=== PATIENT | female | born 1995 | race Two or more races ===

== ENCOUNTER → 2025-03-11 | Outpatient (BNVA) | payer MEDICAID, SELFPAY | END | disposition home or self-care (01) | PROVIDERS: PCP Nurse Practitioner Family; Referring Provider Nurse Practitioner Family; Visit Provider Nurse Practitioner Family | DX: Z00.01 Encounter for general adult medical examination with abnormal findings (principal); Z13.1 Encounter for screening for diabetes mellitus; E78.5 Hyperlipidemia, unspecified; E55.9 Vitamin D deficiency, unspecified; E66.3 Overweight; M54.89 Other dorsalgia; Z71.85 Encounter for immunization safety counseling | CPT/HCPCS: 99214 ==

== ENCOUNTER → 2025-03-15 | Outpatient (BNVA) | payer MEDICAID, SELFPAY | END | disposition home or self-care (01) | PROVIDERS: PCP Nurse Practitioner Family; Referring Provider Nurse Practitioner Family; Visit Provider Nurse Practitioner Family | DX: Z12.4 Encounter for screening for malignant neoplasm of cervix (principal); Z11.3 Encounter for screening for infections with a predominantly sexual mode of transmission; N76.0 Acute vaginitis | CPT/HCPCS: 99215; Q0091 ==

== ENCOUNTER → 2025-03-18 | Outpatient (BNVA) | payer MEDICAID, SELFPAY | END | disposition home or self-care (01) | PROVIDERS: PCP Nurse Practitioner Family; Referring Provider Nurse Practitioner Family; Visit Provider Nurse Practitioner Family | DX: Z32.02 Encounter for pregnancy test, result negative (principal); Z71.1 Person with feared health complaint in whom no diagnosis is made | CPT/HCPCS: 99215 ==

== ENCOUNTER → 2025-03-22 | Outpatient (BNVA) | payer MEDICAID, SELFPAY | END | disposition home or self-care (01) | PROVIDERS: PCP Nurse Practitioner Family; Referring Provider Nurse Practitioner Family; Visit Provider Nurse Practitioner Family | DX: Z71.2 Person consulting for explanation of examination or test findings (principal); R87.810 Cervical high risk human papillomavirus (HPV) DNA test positive | CPT/HCPCS: 99212; G0463 ==

== ENCOUNTER → 2025-03-31 | Outpatient (BNVA) | payer MEDICAID, SELFPAY | END | disposition home or self-care (01) | PROVIDERS: PCP Nurse Practitioner Family; Referring Provider Nurse Practitioner Family; Visit Provider Nurse Practitioner Family | DX: Z71.2 Person consulting for explanation of examination or test findings (principal); E78.5 Hyperlipidemia, unspecified; R73.03 Prediabetes; E55.9 Vitamin D deficiency, unspecified | CPT/HCPCS: 99212; G0463 ==

== ENCOUNTER 2025-05-18 09:33 | Outpatient (AMB) | payer MEDICAID, SELFPAY ==
--- NOTE | 2025-05-18 09:32 | AMB.GYNCLNOT ---
Vital Signs 05/18/25 09:54 Height 1.54 m Height Method Measured Weight 65.998 kg Weight Measurement Method Standing Scale BMI 27.8 BP 100/63 Blood Pressure Source Automatic Cuff Blood Pressure Location Right Upper Arm Position Sitting Respiration 17 Pulse 55 L Pulse Source Monitor Temp 98.3 F Temp Source Temporal Artery Scan Pulse Oximetry (%) 97 Oxygen Delivery Method Room Air Allergies/Home Meds Allergies & Medications Allergies No Known Allergies Allergy (Verified 05/18/25 09:55) Medication Reconciliation ergocalciferol (vitamin D2) 1,250 mcg (50,000 unit) capsule 50,000 unit PO QWEEK 12 weeks #12 caps 03/31/25 [Rx Confirmed 05/18/25] Intake Visit Data Collection New Patient or Established: Established Patient (seen at [facility] within 3 years) Reason for Visit:: REF POSITIVE HPV Consent obtained for Telemed Visit: No Seen by Clinical Staff ONLY (RN/MA): No Comprehensive Advisor Required: Yes Comprehensive Advisor's name/title: SOTERO Do You Feel Safe at Home: Yes Authorities Contacted: N/A PCP or OBGYN visit in last 3 months: Yes Date of Last PCP or OBGYN visit: 03/18/25 Hx Now: No Are you currently on any form of Control: No Last menstrual period: 04/09/25 Pain Present Currently: No Pain Scale Used: Rankin-Moran/Numerical Pain scale:: 0 Smoking Status Smoking Status: Never smoker 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 Menstrual regularity: irregular Flow: normal Monthly: No How many days does period last: 5 Age at menarche: 11 Menopausal: No Currently sexually active: Yes 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 1. Little interest or pleasure in doing things: not at all PHQ-9 3. Trouble falling or staying asleep, or sleeping too much: Not at all 4. Feeling tired or having little energy: Not at all 5. Poor appetite or overeating: Not at all 6. Feeling bad about yourself - or that you are a failure or have let yourself or your family down: Not at all 7. Trouble concentrating on things, such as reading the newspaper or watching television: Not at all 8. Moving or speaking so slowly that other people could have noticed? - Or the opposite - being so fidgety or restless that you have been moving around a lot more than usual: not at all 9. Thoughts that you would be better off or of hurting yourself in some way: Not at all If you checked off any problems, how difficult have these problems made it for you to do your work, take care of things at home, or get along with other people?: not difficult at all Source: Developed by Drs. Sagar Mcmahan, Janet Handy, Arslan Avila and colleagues, with an educational bernard from [employer]. Social History Living Situation History Lives With: Significant Other Housing: House Tobacco History Smoking Status: Never smoker Second Hand Smoke Exposure: No Alcohol History Alcohol Intake: Never Substance Use History Substance Use: NONE Domestic Abuse History Do You Feel Safe at Home: Yes History of Present Illness HPI Narrative Isis Randall is a 30-year-old female presenting for review of abnormal Pap smear results. She was referred from the [facility] for care review. The patient had a Pap smear on March 11, 2025, which was negative for intraepithelial lesion or malignancy (NILM), but positive for high-risk HPV types other than 16 and 18. A previous Pap smear in 2023 had similar results. The patient's gonorrhea and chlamydia tests were negative. She is 1, para 1, with a history of one in January 2020. Her last menstrual period was on April 09, 2025, and she is currently not using any contraceptive method. Isis does not report any specific symptoms related to her abnormal Pap smear results. She understands that a colposcopy has been recommended based on the ASCCP guidelines due to her positive high-risk HPV results. Obstetric History: - GPAL: A0 L1 - history: - Delivered via in January 2020 Medical History: - HPV (high-risk types other than 16 and 18) positive on Pap smear Surgical History: - section in January 2020 ROS: Negative except as stated above, limited to STRATEGIC PARTNER DEVELOPMENT MANAGER and pertinent complaints. Diagnostic Test Results and Labs: - Pap smear (03/11/2024): Negative for intraepithelial lesion or malignancy (NILM) - HPV test (03/11/2024): Positive for other high-risk types (not 16 or 18) - Gonorrhea test (03/11/2024): Negative - Chlamydia test (03/11/2024): Negative - Pap smear (03/15/2025): Negative for intraepithelial lesion or malignancy (NILM) - HPV test (03/15/2025): Positive for other high-risk types (not 16 or 18) Exam General General Appearance: alert, in no apparent distress and healthy appearing Head Head exam: atraumatic Neck Neck exam: Present normal inspection and trachea midline Chest Chest inspection: Present normal inspection and symmetric chest wall rise External exam: Present normal external exam; Absent tenderness Neuro Neurological exam: Present oriented X3 Psych Psychiatric exam: Present normal affect and normal mood Office Procedures OB Clinic LOC & Office Proc's Nursing/Assessment Patient Status: Established Patient OB Clinic Nursing Assessment: Medication Reconciliation, Update PMH in EMR and Vital Signs OB Clinic Coordination of Care: Complex Care and Chronic Disease 1-5, Consent,records obtained, informed consent, Education Simp Pt/Fam, 4+ Authorizations needed and Staff clarify orders Established Patient Charge Established Patient Point Assignment: 110 Established Patient Point Charge: EP Level 3 (80-115) Assessment & Plan Diagnosis / Problem List (1) Prediabetes: Status: Chronic (2) HPV test positive: Status: Acute Plan Abnormal Pap smear with positive high-risk HPV Plan: - Schedule colposcopy with cervical biopsy in 2-3 weeks, after patient's next menstrual period - Instruct patient to avoid sexual intercourse for 2-3 days post-procedure - Review biopsy results when available to determine if further intervention is needed - Provide patient education on colposcopy procedure and post-procedure care
[2025-05-18 09:54] VITALS: BP 100/63; PULSE 55; RESP 17; TEMP 36.8; O2SAT 97; BMI 27.8
== END 2025-05-18 10:06 | disposition home or self-care (01) ==
LOC: HODSOBC 09:33
PROVIDERS: PCP Nurse Practitioner Family; Referring Provider Nurse Practitioner Family; Supervising Provider Obstetrics & Gynecology; Visit Provider Obstetrics & Gynecology
DX: R87.810 Cervical high risk human papillomavirus (HPV) DNA test positive (principal); R73.03 Prediabetes
CPT/HCPCS: 99213; G0463

== ENCOUNTER → 2025-06-07 | Outpatient (BNVA) | payer MEDICAID, SELFPAY | END | disposition home or self-care (01) | PROVIDERS: PCP Nurse Practitioner Family; Referring Provider Nurse Practitioner Family; Visit Provider Nurse Practitioner Family | DX: E55.9 Vitamin D deficiency, unspecified (principal) | CPT/HCPCS: 99212; G0463 ==

== ENCOUNTER 2025-06-15 09:59 | Outpatient (AMB) | payer MEDICAID, SELFPAY ==
[2025-06-15 10:41] VITALS: BP 105/70; PULSE 64; RESP 18; TEMP 36.2; O2SAT 98; BMI 27.1
--- NOTE | 2025-06-15 10:41 | GYNCLNT_ITS ---
Vital Signs 06/15/25 10:41 Height 1.54 m Height Method Stated Weight 64.467 kg BMI 27.1 BP 105/70 Blood Pressure Source Automatic Cuff Blood Pressure Location Left Upper Arm Position Sitting Respiration 18 Pulse 64 Pulse Source Monitor Temp 97.2 F Temp Source Oral Pulse Oximetry (%) 98 Oxygen Delivery Method Room Air Allergies/Home Meds Allergies & Medications Allergies No Known Allergies Allergy (Verified 07/08/25 13:19) Medication Reconciliation cholecalciferol (vitamin D3) 1,250 mcg (50,000 unit) capsule 1,250 mcg PO QWEEK 12 weeks #12 caps 07/08/25 [Rx] Intake Visit Data Collection New Patient or Established: Established Patient (seen at [facility] within 3 years) Reason for Visit:: COLPO CONSENT PROVIDED Seen by Clinical Staff ONLY (RN/MA): No Emergency Room Registered Nurse Required: Yes Emergency Room Registered Nurse's name/title: MARYELLEN ABERNATHY MA Do You Feel Safe at Home: Yes Authorities Contacted: N/A PCP or OBGYN visit in last 3 months: Yes Date of Last PCP or OBGYN visit: 05/18/25 Hx Now: No Are you currently on any form of Control: No Last menstrual period: 06/01/25 Pain Present Currently: No Pain Scale Used: Rankin-Moran/Numerical Pain scale:: 0 Smoking Status Smoking Status: Never smoker 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 Menstrual regularity: regular Flow: normal Monthly: Yes How many days does period last: 5 Age at menarche: 11 Menopausal: No Currently sexually active: Yes 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 1. Little interest or pleasure in doing things: not at all 2. Feeling down, depressed, or hopeless: not at all Total score: 0 PHQ-9 3. Trouble falling or staying asleep, or sleeping too much: Not at all 4. Feeling tired or having little energy: Not at all 5. Poor appetite or overeating: Not at all 6. Feeling bad about yourself - or that you are a failure or have let yourself or your family down: Not at all 7. Trouble concentrating on things, such as reading the newspaper or watching television: Not at all 8. Moving or speaking so slowly that other people could have noticed? - Or the opposite - being so fidgety or restless that you have been moving around a lot more than usual: not at all 9. Thoughts that you would be better off or of hurting yourself in some way: Not at all Total score: 0 If you checked off any problems, how difficult have these problems made it for you to do your work, take care of things at home, or get along with other people?: not difficult at all Source: Developed by Drs. Sagar Mcmahan, Janet Handy, Arslan Avila and colleagues, with an educational bernard from [employer]. Depression screen completed yes Social History Living Situation History Lives With: Significant Other Housing: House Tobacco History Smoking Status: Never smoker Second Hand Smoke Exposure: No Alcohol History Alcohol Intake: Never Substance Use History Substance Use: NONE Domestic Abuse History Do You Feel Safe at Home: Yes History of Present Illness HPI Narrative The patient had a Pap smear on March 11, 2025, which was negative for intraepithelial lesion or malignancy (NILM), but positive for high-risk HPV types other than 16 and 18. A previous Pap smear in 2023 had similar results. The patient's gonorrhea and chlamydia tests were negative. She is 1, para 1, with a history of one in January 2020. Her last menstrual period was on April 09, 2025, and she is currently not using any contraceptive method. Isis does not report any specific symptoms related to her abnormal Pap smear results. She understands that a colposcopy has been recommended based on the ASCCP guidelines due to her positive high-risk HPV results. Exam General General Appearance: alert, in no apparent distress and healthy appearing Head Head exam: atraumatic Neck Neck exam: Present normal inspection and trachea midline Chest Chest inspection: Present normal inspection and symmetric chest wall rise External exam: Present normal external exam; Absent tenderness Neuro Neurological exam: Present oriented X3 Psych Psychiatric exam: Present normal affect and normal mood Office Procedures OB Clinic LOC & Office Proc's Nursing/Assessment Patient Status: Established Patient OB Clinic Nursing Assessment: Medication Reconciliation, Update PMH in EMR and Vital Signs OB Clinic Coordination of Care: Education Complex Pt/Fam, Consent,records obtained, informed consent, Education Simp Pt/Fam, Lab and Imaging orders and Staff clarify orders Special Needs: Language special needs Miscellaneous Interventions: Path collection/handling and Pelvic Comp w/OB cult Established Patient Charge Established Patient Point Assignment: 125 Established Patient Point Charge: EP Level 4 (120-155) In Clinic Bedside tests Bedside HCG: Yes In Clinic Procedures Biopsy/Exc/Destruction of any site: Yes Colposcopy: YES PERFORMED COLPOSCOPY OF CERVIX/VAG W/BX & ENDOCERVICAL CURETTAGE: Yes 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: Colposcopy HISTORY HPV vaccine: none Allergy to Latex: No Allergic to Iodine or Betadine: No Contraception: none STI screening up to date: Yes New partner(s) since last screening: No Tobacco use: No PRE-PROCEDURE Consent signed: Yes Discussion w/ patient: Nature & meaning of cervical cytology screening, HPV infection in relation to cervical cytology findings, Colposcopy procedure explained and Side effects, risks & complications discussed PROCEDURE Time out performed: Yes Colposcopy of:: cervix Speculum used:: small The vulva, vagina & perianal regions were examined w/ findings of:: no gross abnormalities A speculum was placed, and the cervix and vagina were treated with:: Diluted acetic acid Cervix:: Fully visualized Squamocolumnar junction:: Fully visualized Acetowhite or non-Lugol's staining: not present Lesion(s): not present Colposcopic Impression: normal/benign findings Patient tolerated procedure:: well PLAN HPV Plan:: n/a Pt. advised of relationship between smoking and cervical dysplasia/cancer; smoking cessation discussed: Yes Colposcopy results to be communicated per:: at followup Assessment & Plan Diagnosis / Problem List (1) HPV test positive: Status: Acute Plan Colposcopy biopsy performed Return with results
== END 2025-06-15 11:00 | disposition home or self-care (01) ==
LOC: HODSOBC 09:59
PROVIDERS: Supervising Provider Obstetrics & Gynecology; Visit Provider Obstetrics & Gynecology
DX: R87.810 Cervical high risk human papillomavirus (HPV) DNA test positive (principal)
CPT/HCPCS: 57454; 81025; 99214; J3490; G0463

== ENCOUNTER 2025-06-28 10:16 | Outpatient (AMB) | payer MEDICAID, SELFPAY ==
--- NOTE | 2025-06-28 10:20 | AMB.GYNCLNOT ---
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: Yes Division Plant Engineer's name/title: MARYELLEN ABERNATHY MA Do You Feel Safe at Home: Yes Authorities Contacted: N/A PCP or OBGYN visit in last 3 months: Yes Date of Last PCP or OBGYN visit: 06/15/25 Hx Now: No Are you currently on any form of Control: No Last menstrual period: 05/22/25 Pain Present Currently: No Pain Scale Used: Rankin-Moran/Numerical Pain scale:: 0 Smoking Status Smoking Status: Never smoker For Telemed visit only Telemed Video/Phone Visit: Yes Verbal consent obtained for Telemed visit?: Yes Verbal Consent witness name: MARYELLEN ABERNATHY MA / KAMINI PRECIADO MA 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 History Menstrual regularity: regular Flow: normal Monthly: Yes How many days does period last: 3 Age at menarche: 11 Menopausal: No Currently sexually active: Yes 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 1. Little interest or pleasure in doing things: not at all 2. Feeling down, depressed, or hopeless: not at all Total score: 0 PHQ-9 3. Trouble falling or staying asleep, or sleeping too much: Not at all 4. Feeling tired or having little energy: Not at all 5. Poor appetite or overeating: Not at all 6. Feeling bad about yourself - or that you are a failure or have let yourself or your family down: Not at all 7. Trouble concentrating on things, such as reading the newspaper or watching television: Not at all 8. Moving or speaking so slowly that other people could have noticed? - Or the opposite - being so fidgety or restless that you have been moving around a lot more than usual: not at all 9. Thoughts that you would be better off or of hurting yourself in some way: Not at all Total score: 0 If you checked off any problems, how difficult have these problems made it for you to do your work, take care of things at home, or get along with other people?: not difficult at all Source: Developed by Drs. Sagar Mcmahan, Janet Handy, Arslan Avila and colleagues, with an educational bernard from [employer]. Depression screen completed yes Social History Living Situation History Lives With: Significant Other Housing: House Tobacco History Smoking Status: Never smoker Second Hand Smoke Exposure: No Alcohol History Alcohol Intake: Never Substance Use History Substance Use: NONE Domestic Abuse History Do You Feel Safe at Home: Yes History of Present Illness HPI Narrative Isis Randall presents for follow-up of recent biopsy results. The patient had previously undergone biopsies, and today's visit was to discuss the findings. The biopsy reports indicate low-grade results, with no evidence of cancer or precancer detected. 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 Exam Narrative Physical exam: Not performed due to telephone visit Office Procedures OB Clinic LOC & Office Proc's Nursing/Assessment Patient Status: Established Patient OB Clinic Nursing Assessment: Medication Reconciliation, Update PMH in EMR and Vital Signs OB Clinic Coordination of Care: Education Complex Pt/Fam, Consent,records obtained, informed consent, Lab and Imaging orders, Results/Orders obtained and Staff clarify orders Established Patient Charge Established Patient Point Assignment: 85 Telehealth If patient is seen using Teleconference methods, complete New/Est section, but DO NOT katie points only katie the correct Telemed visit type Telemed Phone/Video with patient at home & Dr,PA,GENERATING PLANT SUPERINTENDENT: Yes Assessment & Plan Diagnosis / Problem List (1) Prediabetes: Status: Chronic (2) Person consulting for explanation of examination or test findings: Status: Acute Plan Abnormal Cervical Biopsy Results: - Biopsy reports reviewed and found to be all low-grade. - No evidence of cancer or precancer based on these results. Plan: - Repeat Pap smear in one year.
== END 2025-06-28 10:31 | disposition home or self-care (01) ==
LOC: HODSOBC 10:16
PROVIDERS: Supervising Provider Obstetrics & Gynecology; Visit Provider Obstetrics & Gynecology
DX: Z71.2 Person consulting for explanation of examination or test findings (principal); R73.03 Prediabetes
CPT/HCPCS: 99212; G0463

== ENCOUNTER → 2025-07-08 | Outpatient (BNVA) | payer MEDICAID, SELFPAY | END | disposition home or self-care (01) | PROVIDERS: PCP Nurse Practitioner Primary Care; Referring Provider Nurse Practitioner Primary Care; Visit Provider Nurse Practitioner Primary Care | DX: E55.9 Vitamin D deficiency, unspecified (principal) | CPT/HCPCS: 99212; G0463 ==

== ENCOUNTER → 2025-09-14 | Outpatient (BNVA) | payer MEDICAID, SELFPAY | END | disposition home or self-care (01) | PROVIDERS: PCP Nurse Practitioner Family; Referring Provider Nurse Practitioner Family; Visit Provider Nurse Practitioner Family | DX: N61.0 Mastitis without abscess (principal); Z28.21 Immunization not carried out because of patient refusal | CPT/HCPCS: 99214 ==

== ENCOUNTER → 2025-10-07 | Outpatient (BNVA) | payer MEDICAID, SELFPAY | END | disposition home or self-care (01) | PROVIDERS: PCP Nurse Practitioner Family; Referring Provider Nurse Practitioner Family; Visit Provider Nurse Practitioner Primary Care | DX: N64.4 Mastodynia (principal) | CPT/HCPCS: 99212 ==